=== PATIENT | female | born 1990 | race African-American/Black ===

== ENCOUNTER → 2021-03-25 07:57 | Emergency (ER) | payer SELFPAY ==
[~2021-03-25 07:57] MED LIST: Fluorescein Opthalmic Strip ONE; Tetracaine 0.5% PF 4 ML BOT ONE
== END | disposition home or self-care (01) ==
LOC: CSHERS 07:57
DX: H10.31 Unspecified acute conjunctivitis, right eye (principal)
CPT/HCPCS: 99282

== ENCOUNTER 2021-04-09 22:23 | Emergency (ER) | payer BC, SELFPAY ==
[2021-04-10 19:40] LABS: SARS-CoV-2 PCR by NAA Not Detected (NotDetected)
== END 2021-04-10 02:40 | disposition home or self-care (01) ==
LOC: CSHERS 22:23
DX: J06.9 Acute upper respiratory infection, unspecified (principal); J32.9 Chronic sinusitis, unspecified; Z20.822 Contact with and (suspected) exposure to COVID-19
CPT/HCPCS: 87804; 99283; U0003; U0005